=== PATIENT | male | born 1950 | race Caucasian/White ===

== ENCOUNTER 2016-10-02 08:57 | Day surgery (SDC) | payer OTHER ==
[2016-09-30 11:00] VITALS: BMI 29.2
[~2016-10-02 08:57] MED LIST: LACTATED RINGERS 1,000 ML IV SCH; LIDOCAINE 1% 20 ML VIAL (10MG/ML) FOR IV START INTRADERMA PRN
[2016-10-02 09:16] VITALS: RESP 18; TEMP 97.2
[2016-10-02] MEDS ORDERED: MIDAZOLAM 2 MG/2 ML VIAL ONE (09:38)
[2016-10-02] MEDS ORDERED: fentaNYL (PF) 50 MCG/ML 2 ML AMP ONE (09:38)
[2016-10-02] MEDS ORDERED: PROPOFOL 10 MG/ML 20 ML VIAL IV ONE (09:38)
--- NOTE | 2016-10-02 10:00 | P.GSHP ---
History of Present Illness H&P Date: 10/02/16 Chief Complaint: GERD, dysphagia This 65-year-old male referred from Dr. Kayleen marshall. Patient rents today for EGD. He's had issues with GERD and dysphagia. - Constitutional Constitutional: Reports as per HPI Past Medical History Additional Past Medical History / Comment(s): PAST HX HTN-NOW CONTROLLED. ESOPHAGEAL STRICTURE History of Any Multi-Drug Resistant Organisms: None Reported Past Surgical History: Hernia Repair Additional Past Surgical History / Comment(s): HERNIA X 2 Past Anesthesia/Blood Transfusion Reactions: Motion Sickness, Postoperative Nausea & Vomiting (PONV) Smoking Status: Never smoker - Past Family History Father Family Medical History: Cancer Medications and Allergies Home Medications Medication Instructions Recorded Confirmed Type Fish Oil/Dha/Epa [Fish Oil 1,200 1 tab PO DAILY 10/02/16 10/02/16 History mg Fish Oil] Garlic 1 each PO DAILY 10/02/16 10/02/16 History Allergies Allergy/AdvReac Type Severity Reaction Status Date / Time No Known Allergies Allergy Verified 10/02/16 09:09 Surgical - Exam Vital Signs Temp Pulse Resp BP Pulse Ox 97.2 F L 70 18 133/77 96 10/02/16 09:15 10/02/16 09:15 10/02/16 09:15 10/02/16 09:15 10/02/16 09:15 - General well developed, no distress - Eyes PERRL - ENT normal pinna - Neck no masses - Respiratory normal expansion - Cardiovascular Rhythm: regular - Abdomen Abdomen: soft, non tender Assessment and Plan Plan: GERD, dysphagia. We'll perform EGD.
--- NOTE | 2016-10-02 10:09 | P.OP ---
Date of Procedure: 10/02/16 Preoperative Diagnosis: GERD Dysphagia Postoperative Diagnosis: Mild antral gastritis No evidence of hiatal hernia Procedure(s) Performed: EGD Implants: Anesthesia: MAC Surgeon: Mark James Pathology: other (Antrum, esophagus) Condition: stable Disposition: PACU Indications for Procedure: Operative Findings: Description of Procedure: Patient's placed on the endoscopy table in the lateral position. He received IV sedation. The gastroscope some placed oropharynx passed in the esophagus and stomach. The scope was then placed through the pylorus. The first and second portion of the duodenum appeared normal. Scope was then brought back and the antrum and this appeared mildly inflamed. A biopsies performed. Scope was unretroflexed and remainder the stomach appeared normal. The GE junction was at 47 is. There is no significant hiatal hernia. The distal esophagus Appeared Normal. The proximal esophagusAppeared Normal. Scope was withdrawn from patient.
[2016-10-02 10:43] VITALS: BP 130/85; PULSE 62
== END 2016-10-02 10:58 | disposition home or self-care (01) ==
LOC: ORWHC2ENDO 08:57
PROVIDERS: ATTEND Surgery
DX: K21.0 Gastro-esophageal reflux disease with esophagitis (principal); R13.10 Dysphagia, unspecified; K29.50 Unspecified chronic gastritis without bleeding
CPT/HCPCS: 88305; 88342; 43239; J2250; J3010; J2704

== ENCOUNTER → 2016-10-06 | Outpatient (CLI) | payer OTHER ==
--- NOTE | 2016-10-06 08:46 | FL ---
EXAMINATION TYPE: FL UGI w esophagus DATE OF EXAM: 10/06/2016 COMPARISON: NONE HISTORY: Dysphasia TECHNIQUE: A single/double contrast UGI study is performed. FINDINGS: Fur Repair Inspector image of the abdomen shows a curvature of the spine with multilevel degenerative dis c disease and arthropathy of the hips. Vascular calcifications in the pelvis. Bowel gas pattern nonsp ecific. Hypertrophic and degenerative changes spine with 1 chronic appearing wedge deformity in the t horacolumbar junction. The esophagus shows normal motility and emptying into the stomach. No evidence of stricture noted. The stomach shows normal distensibility, peristalsis, and mucosal folds. No evidence of any mass or ulcer disease. Small amount of gastroesophageal reflux with a small sliding hiatal hernia. The duoden al bulb, sweep, and proximal small bowel loops are unremarkable. IMPRESSION: 1. Small sliding hiatal hernia with mild gastroesophageal reflux.
== END | disposition home or self-care (01) ==
LOC: RADFLMAIN 07:40
PROVIDERS: ATTEND Surgery
DX: K21.9 Gastro-esophageal reflux disease without esophagitis (principal); K44.9 Diaphragmatic hernia without obstruction or gangrene
CPT/HCPCS: 74240

== ENCOUNTER 2018-11-23 10:48 | Emergency (ER) | payer MEDICARE, OTHER ==
[2018-11-23 11:11] VITALS: BP 132/85; PULSE 91; RESP 18; TEMP 98.1
--- NOTE | 2018-11-23 12:23 | ED ---
Fall HPI - General Chief Complaint: Fall Stated Complaint: Fall, facial injury Time Seen by Provider: 11/23/18 11:22 Source: patient, RN notes reviewed, old records reviewed Mode of arrival: ambulatory Limitations: no limitations - History of Present Illness Initial Comments: This is a 68-year-old male the ER presents status post fall. Patient is 3 days from a fall off a ladder he did fall onto a bed to complain of some right shoulder pain was seen by orthopedics for shoulder pain. Patient was clearance for shoulder pain but is complaining of also the left thigh pain left headache and sent to ER for evaluation by orthopedics secondary significant swelling of left eye. Patient denies vision changes denies significant headache. Patient states his eye has not been bothering her. Does admit that the significant bruising has been getting progressively worse. No other issues denies drug or alcohol abuse MD Complaint: fall -: days(s) (3) Fall From: from height (distance) (8 ft) When Fall Occurred: # days [employer] (3) Fall Witnessed: no Place Fall Occurred: home Loss of Consciousness: none Prolonged Down Time?: no Symptoms Prior to Fall: none Location: head, face (FI), eyes (Left eye) Severity: moderate Severity scale (1-10): 4 Quality: aching Context: tripped/slipped Associated Symptoms: denies - Related Data Home Medications Medication Instructions Recorded Confirmed No Known Home Medications 11/23/18 11/23/18 Allergies Allergy/AdvReac Type Severity Reaction Status Date / Time No Known Allergies Allergy Verified 11/23/18 11:24 Review of Systems ROS Statement: Those systems with pertinent positive or pertinent negative responses have been documented in the HPI. ROS Other: All systems not noted in ROS Statement are negative. Past Medical History Additional Past Medical History / Comment(s): PAST HX HTN-NOW CONTROLLED. ESOPHAGEAL STRICTURE History of Any Multi-Drug Resistant Organisms: None Reported Past Surgical History: Hernia Repair Additional Past Surgical History / Comment(s): HERNIA X 2 Past Anesthesia/Blood Transfusion Reactions: Motion Sickness, Postoperative Nausea & Vomiting (PONV) Past Psychological History: No Psychological Hx Reported Smoking Status: Never smoker - Past Family History Father Family Medical History: Cancer General Exam Limitations: no limitations General appearance: alert, in no apparent distress Head exam: Present: normocephalic, normal inspection, other (No proptosis noted on exam no tenderness with palpation of L eye). Absent: atraumatic (Patient does have significant ecchymosis and bruising to left eye, edema, mild subcu 100 tidal hemorrhage to the left lateral aspect of eye no hyphema) Eye exam: Present: normal appearance, PERRL, EOMI. Absent: scleral icterus, conjunctival injection, periorbital swelling ENT exam: Present: normal exam, mucous membranes moist Neck exam: Present: normal inspection. Absent: tenderness, meningismus, lymphadenopathy Respiratory exam: Present: normal lung sounds bilaterally. Absent: respiratory distress, wheezes, rales, rhonchi, stridor Cardiovascular Exam: Present: regular rate, normal rhythm, normal heart sounds. Absent: systolic murmur, diastolic murmur, rubs, gallop, clicks GI/Abdominal exam: Present: soft, normal bowel sounds. Absent: distended, tenderness, guarding, rebound, rigid Extremities exam: Present: normal inspection, full ROM, normal capillary refill. Absent: tenderness, pedal edema, joint swelling, calf tenderness Back exam: Present: normal inspection Neurological exam: Present: alert, oriented X3, CN II-XII intact Psychiatric exam: Present: normal affect, normal mood Skin exam: Present: warm, dry, intact, normal color. Absent: rash Course Vital Signs 11/23/18 11:07 Temperature 98.1 F Pulse Rate 91 Respiratory 18 Rate Blood Pressure 132/85 O2 Sat by Pulse 99 Oximetry - Reevaluation(s) Reevaluation #1: 11/23/18 12:23 Record is reviewed Reevaluation #2: 11/23/18 12:43 Patient discussed follow-up with oral surgery, questions answered regarding fracture Medical Decision Making - Medical Decision Making 68 male to ER status post fall 3 days of fall he did hit his left eye has swelling left orbital floor fracture no hematoma, no proptosis, extraocular motion is intact with no vision changes, patient will follow-up with Dr. Silverio - Radiology Data Radiology results: report reviewed (CT brain C-spine and facial bones does show left orbital fracture), image reviewed Disposition Clinical Impression: Fall, Orbital floor (blow-out) closed fracture Disposition: HOME SELF-CARE Condition: Good Instructions (If sedation given, give patient instructions): Facial Fracture (ED) Is patient prescribed a controlled substance at d/c from ED?: No Referrals: Kayleen Griggs DO [Primary Care Provider] - 1-2 days Nii Silverio DDS [STAFF PHYSICIAN] - 1-2 days
--- NOTE | 2018-11-23 12:30 | CT ---
EXAMINATION TYPE: CT brain cspine wo con, CT facial bones wo con DATE OF EXAM: 11/23/2018 COMPARISON: NONE HISTORY: Fall injury 2 days ago, left eye pain and swelling, headache and neck pain CT DLP: 1151.8 (accession [id number]), included in brain/cspine (accession [id number]) mGycm. Automated E xposure Control for Dose Reduction was Utilized. TECHNIQUE: CT scan of the head, facial bones, and cervical spine are all performed without contrast. FINDINGS: There is no acute intracranial hemorrhage or midline shift identified. Diffuse ventricula r and sulcal prominence. The calvarium is intact. The calvarium is intact. Mild calcified plaque supr aclinoid segment bilateral distal internal carotid arteries. Mandible is intact. Temporomandibular joints are maintained bilaterally. The zygomatic arches are int act bilaterally. Nasal bones are intact. Nasal septum is deviated left of midline. There is acute displaced comminuted fracture through the orbital floor. There is preseptal orbital em physema with intraorbital extension from involvement inferiorly near inferior rectus muscle is noted. No proptosis is identified. No post septal hematoma. Moderate soft tissue swelling and hematoma over left zygoma extending inferiorly over the right maxillary sinus. Left inferior rectus muscle shows n o suspicious inferior displacement. Pterygoid plates are intact. Visualized maxilla is intact. Visualized paranasal sinuses are clear. Cervical spine is visualized in its entirety from C1 through upper thoracic levels and demonstrates s atisfactory alignment without evidence of acute fracture or dislocation. Prevertebral soft tissue ap pears within normal limits. The C1-C2 articulation is within normal limits on the coronal images. V ertebral body heights are maintained. Mild to moderate disc space narrowing C5-C6 level with mild to moderate anterior spurring. [id number] disc space narrowing with mild spurring C6-C7 level. L ucent lesion right C6 vertebra favored benign or nonaggressive but indeterminate. Correlate clinicall y. Spinal canal is preserved. Review of axial images show multilevel left-sided uncovertebral facet degenerative changes causing mu ltilevel neural foraminal narrowing. Multilevel disc herniations or disc complex effacing the anterio r thecal sac. Lung apices are clear. Mild calcified plaque bilateral carotid bulb level is noted. IMPRESSION: 1. There is no acute fracture or dislocation evident in the cervical spine. 2. No acute intracranial hemorrhage or midline shift is seen. 3. Acute comminuted blowout type fracture of the left orbital floor without inferior rectus muscle en trapment. Preseptal and postglobe emphysema without post septal hematoma. Moderate soft tissue swelli ng over left lipoma extending inferiorly over left maxillary sinus and cheek.
== END 2018-11-23 13:02 | disposition home or self-care (01) ==
LOC: EC 10:48
DX: S02.32XA Fracture of orbital floor, left side, initial encounter for closed fracture (principal); M79.652 Pain in left thigh; W11.XXXA Fall on and from ladder, initial encounter; Y92.009 Unspecified place in unspecified non-institutional (private) residence as the place of occurrence of the external cause
CPT/HCPCS: 70450; 70486; 72125; 99284

== ENCOUNTER 2019-07-01 11:19 | Emergency (ER) | payer MEDICARE, OTHER ==
[2019-07-01 11:24] VITALS: TEMP 97.3
--- NOTE | 2019-07-01 11:34 | ED ---
General Adult HPI - General Chief complaint: Skin/Abscess/Foreign Body Stated complaint: fb in throat/esophagus Time Seen by Provider: 07/01/19 11:22 Source: patient, family Mode of arrival: ambulatory Limitations: no limitations - History of Present Illness Initial comments: Dictation was produced using [employer] dictation software. please excuse any grammatical, word or spelling errors. This patient was cared for during a federal and state declared state of emergency secondary to Covid 19 Chief Complaint: 68-year-old male with history of food bolus impaction presents with foreign body in throat. History of Present Illness: Patient 68-year-old male he has had a history of esophageal foreign body. Patient states that on he was eating ribs when he felt like the meat became impacted in his lower throat. Patient tried a t home to resolve the issue. He is tried drinking carbonated beverages, gel and oily substances would not resolve. Patient states he's had to have upper endoscopies to relieve the food bolus impaction. States that he had upper endoscopy and there is no apparent reason for why he keeps having these episodes. States that he is able to drink fluids however unable to tolerate solid foods. Denies any shortness of breath. No drooling The ROS documented in this emergency department record has been reviewed and confirmed by me. Those systems with pertinent positive or negative responses have been documented in the HPI. All other systems are other negative and/or noncontributory. PHYSICAL EXAM: General Impression: Alert and oriented x3, not in acute distress HEENT: Normocephalic atraumatic, extra-ocular movements intact, pupils equal and reactive to light bilaterally, mucous membranes moist. Cardiovascular: Heart regular rate and rhythm Chest: Able to complete full sentences, no retractions, no tachypnea Abdomen: abdomen soft, non-tender, non-distended, no organomegaly Musculoskeletal: Pulses present and equal in all extremities, no peripheral edema Motor: no focal deficits noted Neurological: CN II-XII grossly intact, no focal motor or sensory deficits noted Skin: Intact with no visualized rashes Psych: Normal affect and mood ED course: 68-year-old male with clinical presentation consistent with food bolus impaction. Vital signs upon arrival are within acceptable limits. Patient is well-appearing. He is not showing any signs of distress. X-rays of the neck and chest shows no apparent processes. Discussed patient case with Dr. Driscoll was planning to do upper endoscopy possible food bolus retrieval. EKG interpretation: Ventricular rate 77, normal sinus rhythm, MN interval 154, QRS 84, QTC 14. No MN prolongation, no QTC prolongation, no ST or T-wave changes noted. Overall, this EKG is unremarkable Endoscopy team's at bedside performing procedure. Patient tolerated upper endoscopy well. There was an impacted food bolus that was removed. Patient recovered well after anesthesia. Is observed in emergency department for several minutes. Patient be discharged. He is scheduled outpatient follow-up with GI. His gross. Patient will be discharged. - Related Data Home Medications Medication Instructions Recorded Confirmed No Known Home Medications 11/23/18 07/01/19 Allergies Allergy/AdvReac Type Severity Reaction Status Date / Time No Known Allergies Allergy Verified 07/01/19 12:42 Review of Systems ROS Statement: Those systems with pertinent positive or pertinent negative responses have been documented in the HPI. ROS Other: All systems not noted in ROS Statement are negative. Past Medical History Additional Past Medical History / Comment(s): PAST HX HTN-NOW CONTROLLED. ESOPHAGEAL STRICTURE History of Any Multi-Drug Resistant Organisms: None Reported Past Surgical History: Hernia Repair Additional Past Surgical History / Comment(s): HERNIA X 2 Past Anesthesia/Blood Transfusion Reactions: Motion Sickness, Postoperative Nausea & Vomiting (PONV) Past Psychological History: No Psychological Hx Reported Smoking Status: Never smoker Past Alcohol Use History: None Reported Past Drug Use History: None Reported - Past Family History Father Family Medical History: Cancer General Exam Limitations: no limitations Course Vital Signs 07/01/19 07/01/19 11:21 12:45 Temperature 97.3 F L Pulse Rate 82 Respiratory 18 18 Rate Blood Pressure 140/96 121/84 O2 Sat by Pulse 99 93 L Oximetry Medical Decision Making - Lab Data Result diagrams: 07/01/19 12:04 07/01/19 12:04 Lab Results 07/01/19 07/01/19 Range/Units 12:04 12:04 WBC 7.2 (3.8-10.6) k/uL RBC 5.50 (4.30-5.90) m/uL Hgb 16.8 (13.0-17.5) gm/dL Hct 49.2 (39.0-53.0) % MCV 89.5 (80.0-100.0) fL MCH 30.5 (25.0-35.0) pg MCHC 34.1 (31.0-37.0) g/dL RDW 12.5 (11.5-15.5) % Plt Count 315 (150-450) k/uL Neutrophils % 52 % Lymphocytes % 35 % Monocytes % 7 % Eosinophils % 2 % Basophils % 1 % Neutrophils # 3.7 (1.3-7.7) k/uL Lymphocytes # 2.5 (1.0-4.8) k/uL Monocytes # 0.5 (0-1.0) k/uL Eosinophils # 0.2 (0-0.7) k/uL Basophils # 0.1 (0-0.2) k/uL Sodium 138 (137-145) mmol/L Potassium 4.9 (3.5-5.1) mmol/L Chloride 102 (98-107) mmol/L Carbon Dioxide 26 (22-30) mmol/L Anion Gap 10 mmol/L BUN 21 H (9-20) mg/dL Creatinine 0.92 (0.66-1.25) mg/dL Est GFR (CKD-EPI)AfAm >90 (>60 ml/min/1.73 sqM) Est GFR (CKD-EPI)NonAf 87 (>60 ml/min/1.73 sqM) Glucose 97 (74-99) mg/dL Calcium 10.3 H (8.4-10.2) mg/dL Disposition Clinical Impression: Food impaction of esophagus Disposition: HOME SELF-CARE Condition: Good Instructions (If sedation given, give patient instructions): Moderate Sedation (ED), Esophageal Foreign Body (ED) Is patient prescribed a controlled substance at d/c from ED?: No Referrals: Andreia Driscoll MD [STAFF PHYSICIAN] - 1-2 days Time of Disposition: 13:40
[2019-07-01] MEDS ORDERED: SODIUM CHLORIDE 0.9% 1,000 ML IV STA (11:38)
--- NOTE | 2019-07-01 11:51 | XR ---
EXAMINATION TYPE: XR chest 2V DATE OF EXAM: 07/01/2019 HISTORY: esophageal foreign body. REFERENCE: NONE. FINDINGS: The lungs are clear. Pleural space are clear. Heart size is normal. No radiopaque foreign b pepe is seen. IMPRESSION: NORMAL CHEST.
--- NOTE | 2019-07-01 11:52 | XR ---
EXAMINATION TYPE: XR soft tissue neck , 2 VIEWS DATE OF EXAM ORDERED: 07/01/2019 HISTORY: esophageal foreign body. COMPARISON: None. FINDINGS: Soft tissues of the neck are normal. The epiglottis is normal. No radiopaque foreign body is seen. IMPRESSION: NORMAL SOFT TISSUE VIEWS OF THE NECK.
[2019-07-01 12:14] LABS: Basophils # (A) 0.1 k/uL (0-0.2); Basophils % (A) 1 %; Eosinophils # (A) 0.2 k/uL (0-0.7); Eosinophils % (A) 2 %; HCT 49.2 % (39.0-53.0); HGB 16.8 gm/dL (13.0-17.5); Lymphocytes # (A) 2.5 k/uL (1.0-4.8); Lymphocytes % (A) 35 %; MCH 30.5 pg (25.0-35.0); MCHC 34.1 g/dL (31.0-37.0); MCV 89.5 fL (80.0-100.0); Mean Platelet Volume 7.2; Monocytes # (A) 0.5 k/uL (0-1.0); Monocytes % (A) 7 %; Neutrophils # (A) 3.7 k/uL (1.3-7.7); Neutrophils % (A) 52 %; Platelet Count 315 k/uL (150-450); RDW 12.5 % (11.5-15.5); WBC 7.2 k/uL (3.8-10.6)
[2019-07-01 12:24] LABS: African American GFR (CKD) >90 (>60 ml/min/1.73 sqM); Anion Gap 10 mmol/L; Blood Urea Nitrogen 21 mg/dL (9-20); Calcium 10.3 mg/dL (8.4-10.2); Carbon Dioxide 26 mmol/L (22-30); Chloride 102 mmol/L (98-107); Glucose 97 mg/dL (74-99); Non-African American GFR(CKD) 87 (>60 ml/min/1.73 sqM); Potassium 4.9 mmol/L (3.5-5.1); Sodium 138 mmol/L (137-145)
[2019-07-01] MEDS ORDERED: SUCCINYLCHOLINE CHLORIDE 100 MG/5 ML SYR IV ONE (13:13)
[2019-07-01] MEDS ORDERED: PROPOFOL 10 MG/ML 20 ML VIAL IV ONE (13:13)
[2019-07-01] MEDS ORDERED: IV FLUID CONTINUATION 1,000 ML IV ONE (13:14)
[2019-07-01 14:43] VITALS: BP 111/76; PULSE 71; RESP 18
--- NOTE | 2019-07-01 20:28 | CONS ---
CONSULTATION DATE OF SERVICE: 07/01/2019 REQUESTING PHYSICIAN: Dr. Cid REASON FOR CONSULTATION: Acute food impaction. HISTORY OF PRESENT ILLNESS: The patient is a 68-year-old pleasant white male with no significant past medical history, came into the emergency room with acute food dysphagia. He ate chicken for dinner on evening, could not swallow. He tried swallowing. He different things all day Wednesday and today Wednesday, came to the ER complaining of dysphagia. He is able to swallow liquids but not solids. He had a similar episode six years ago needing an upper endoscopy at that time. He states that he had a hiatal hernia repair about 2 years ago and an EGD at that time was unremarkable. PAST MEDICAL HISTORY: Unremarkable. PAST SURGICAL HISTORY: Hernia repair. MEDICATIONS: None. ALLERGIES: No known drug allergies. SOCIAL HISTORY: No smoking, no alcohol use. FAMILY HISTORY: Unremarkable. REVIEW OF SYSTEMS: CARDIOPULMONARY: No chest pain, shortness of breath. GENITOURINARY: No dysuria, hematuria. MUSCULOSKELETAL: Unremarkable. SKIN: Unremarkable. ENDOCRINE: Unremarkable. PSYCHIATRIC: Unremarkable. NEUROLOGY: Unremarkable. ENT/VISION: Unremarkable. CONSTITUTIONAL: No recent weight loss. No fever, chills, night sweats. PHYSICAL EXAMINATION: Blood pressure 130/86, pulse rate 82 per minute and afebrile. HEENT examination unremarkable. Conjunctivae pink. Sclerae anicteric. Conjunctivae pink. Sclerae anicteric. Oral cavity no lesions. NECK: No JVD or lymph node enlargement. CHEST: Clear to auscultation. HEART: Regular rate and rhythm. ABDOMEN: Soft. Bowel sounds are positive. No organomegaly. EXTREMITIES: No pedal edema. NEUROLOGIC: Alert and oriented x3. No focal deficits. LABS: None available. IMPRESSION: 1. Acute food dysphagia in this patient who had an episode about six years ago. Had a piece of meat he swallowed 2 days ago, could not swallow any further. Hence, came to the emergency room. 2. History of hiatal hernia repair. RECOMMENDATIONS: Will proceed with an EGD with foreign body removal. Discussed with him risks, benefits, and complications of procedure and agreeable to it. Thank you for this consultation. MMODL / IJN: [id number] /
--- NOTE | 2019-07-01 20:52 | PCN ---
PROCEDURE NOTE DATE OF SERVICE: 07/01/2019 REQUESTING PHYSICIAN: Dr. Kayleen Griggs. BRIEF HISTORY: The patient is a 68-year-old pleasant white male who came to the emergency room with acute food dysphagia. He was eating a piece of chicken 2 days ago and could not swallow. He was able to manage liquids and saliva. Today he felt progressively getting worse and could not swallow and, hence, he is scheduled for an upper endoscopy for foreign body removal. PROCEDURE PERFORMED: EGD with foreign body removal. PREOPERATIVE DIAGNOSIS: Acute food impaction. IV SEDATION: Per anesthesia. PROCEDURE: After informed consent was obtained from the patient, the procedure was performed in the emergency room. Under general anesthesia upper endoscopy was performed. Scope was inserted into the mouth, esophagus intubated without any difficulty and was gradually advanced into the distal esophagus. There was a large piece of meat that was lodged in the distal esophagus and using a snare, I was able to retrieve the piece of meat out of the mouth. The scope was advanced into the mouth and esophagus reintubated without any difficulty and was gradually advanced into the stomach and duodenum. Bulb and the second part of the duodenum appeared normal. The scope at this time was withdrawn to the stomach, adequately insufflated with air and upon careful examination the mucosa of the antrum, body, cardia and fundus appeared normal. Scope was then withdrawn to the esophagus. The GE junction was located at 41 cm from the incisors. There was a small hiatal hernia noted. There was some tightness noted at the GE junction but no obvious stricture identified. The rest of the esophagus appeared normal. Multiple biopsies were done from the mid and distal esophagus to rule out eosinophilic esophagitis. The patient tolerated the procedure well. IMPRESSION: 1. Tightness at the GE junction probably related from previous hiatal hernia repair with a functional obstruction. 2. Large piece of meat impacted in the distal esophagus, status post removal as described above. RECOMMENDATIONS: Findings of this examination were discussed with the patient as well as his . He will remain on a soft diet. He will follow up with the biopsy results. He will be seen in the office in 1-2 weeks. MMODL / IJN: [id number] /
== END 2019-07-01 14:51 | disposition home or self-care (01) ==
LOC: EC 11:19
DX: T18.128A Food in esophagus causing other injury, initial encounter (principal); I10 Essential (primary) hypertension; Z98.890 Other specified postprocedural states
CPT/HCPCS: 99284; 96360; 96361 ×2; 36415; 93005; 88305; 80048; 85025; 70360; 71046; 43239; 43247; J0330; J2704

== ENCOUNTER → 2019-08-02 | Outpatient (CLI) | payer MEDICARE | END | disposition home or self-care (01) | LOC: LABWHC1 14:35 | PROVIDERS: ATTEND Internal Medicine Gastroenterology | DX: Z11.59 Encounter for screening for other viral diseases (principal) ==

== ENCOUNTER → 2019-08-04 | Day surgery (SDC) | payer MEDICARE ==
[2019-08-03 09:55] VITALS: BMI 27.1
[~2019-08-04] MED LIST changes: +LIDOCAINE 1% (10MG/ML) FOR IV START INTRADERMA ONE; -LIDOCAINE 1% 20 ML VIAL (10MG/ML) FOR IV START INTRADERMA PRN
[2019-08-04 09:55] VITALS: RESP 16; TEMP 97
--- NOTE | 2019-08-04 10:40 | P.PCN ---
Date of Procedure: 08/04/19 Procedure(s) Performed: BRIEF HISTORY: Patient is a 68-year-old, pleasant, white male scheduled for an upper endoscopy as a part of evaluation of intermittent dysphagia to solids. He has episodes of food impaction requiring EGD with foreign bod removal about 5 weeks ago. He scheduled for repeat upper endoscopy with possible dilation today. PROCEDURE PERFORMED: Esophagogastroduodenoscopy with biopsy and dilation. PREOPERATIVE DIAGNOSIS: Intermittent dysphagia to solids and recent episode of food impaction. IV sedation per anesthesia. PROCEDURE: After informed consent was obtained, the patient was brought into the endoscopy unit. IV sedation was administered by Anesthesia under continuous monitoring. Initially the Olympus GIF-140 video endoscope was inserted into the mouth. Esophagus intubated without any difficulty. It was gradually advanced into the stomach and duodenum and carefully examined. The bulb and the second part of the duodenum appeared normal. The scope at this time was withdrawn to the stomach, adequately insufflated with air, and upon careful examination, mucosa of the antrum, body, cardia and the fundus appeared normal. The scope was then withdrawn into the esophagus. The GE junction was located at 41 cm from the incisors. Small hiatal hernia noted. There was a distal esophageal Schatzki's ring identified which was dilated using 15-18 mm balloon sequential fashion for 90 seconds. There was a mucosal tear identified at the end of dilation with small amount of oozing. The rest of the esophagus appeared normal. There were no erosions or ulcerations seen , biopsies were done from the distal esophagus and the patient tolerated the procedure well. IMPRESSION: 1. Distal esophageal Schatzki's ring status post balloon dilation with 15-18 mm TTS balloon as described above. 2. Small hiatal hernia. RECOMMENDATIONS: The findings of this examination were discussed with the patient as well as his family. He will follow with the biopsy results. He was advised to remain on a clear liquid diet for lunch today. He will continue with Prilosec 20 mg daily and follow antireflux measures.. He will be seen in office in 6 weeks.
[2019-08-04 11:00] VITALS: BP 120/75; PULSE 61
== END ==
LOC: ORWHC2ENDO 09:21
PROVIDERS: ATTEND Internal Medicine Gastroenterology
DX: K22.2 Esophageal obstruction (principal); K21.0 Gastro-esophageal reflux disease with esophagitis; K44.9 Diaphragmatic hernia without obstruction or gangrene; Z87.891 Personal history of nicotine dependence; Z79.899 Other long term (current) drug therapy
CPT/HCPCS: 88305; 43239; 43249; C1726

== ENCOUNTER 2020-05-30 09:29 | Observation (INO) | payer MEDICARE ==
--- NOTE | 2020-05-30 10:07 | ED ---
Skin/Abscess/FB HPI - General Chief complaint: Skin/Abscess/Foreign Body Stated complaint: Food in throat Time Seen by Provider: 05/30/20 10:05 Source: patient Mode of arrival: ambulatory Limitations: no limitations - History of Present Illness Initial comments: 69-year-old with history of esophageal foreign body presents to emergency Department with a chief complaint of warm [place] stuck in his throat. Patient reports this occurred on Wednesday after she was eating. States this also occurred about 10 months ago and following that incident, he needed to stretched esophagus. Patient reports not being able to start any solid foods since Wednesday but is able to keep down fluids if he is sipping on them slowly. He denies any chest pain or difficulty breathing at this time. States he does have some discomfort due to the foreign body. - Related Data Home Medications Medication Instructions Recorded Confirmed Prilosec 1 tab PO DAILY 08/03/19 08/04/19 Allergies Allergy/AdvReac Type Severity Reaction Status Date / Time No Known Allergies Allergy Verified 05/30/20 09:35 Review of Systems ROS Statement: Those systems with pertinent positive or pertinent negative responses have been documented in the HPI. ROS Other: All systems not noted in ROS Statement are negative. Past Medical History Additional Past Medical History / Comment(s): PAST HX HTN-NOW CONTROLLED. ESOPHAGEAL STRICTURE History of Any Multi-Drug Resistant Organisms: None Reported Past Surgical History: Hernia Repair Additional Past Surgical History / Comment(s): HERNIA X 2, EGD, esophageal dilation Past Anesthesia/Blood Transfusion Reactions: Motion Sickness, Postoperative Nausea & Vomiting (PONV) Past Psychological History: No Psychological Hx Reported Smoking Status: Former smoker Past Alcohol Use History: Occasional Past Drug Use History: None Reported - Past Family History Father Family Medical History: Cancer General Exam Limitations: no limitations General appearance: alert, in no apparent distress Head exam: Present: atraumatic, normocephalic, normal inspection Eye exam: Present: normal appearance, PERRL, EOMI Pupils: Present: normal accommodation ENT exam: Present: normal exam, normal oropharynx, mucous membranes moist, TM's normal bilaterally, normal external ear exam Neck exam: Present: normal inspection, full ROM. Absent: tenderness Respiratory exam: Present: normal lung sounds bilaterally. Absent: respiratory distress, wheezes, rales, rhonchi, stridor, chest wall tenderness, accessory muscle use Cardiovascular Exam: Present: regular rate, normal rhythm, normal heart sounds GI/Abdominal exam: Present: soft. Absent: distended, tenderness, guarding, rebound Extremities exam: Present: normal inspection, full ROM, normal capillary refill. Absent: tenderness, pedal edema, joint swelling Back exam: Present: normal inspection, full ROM. Absent: tenderness, CVA tenderness (R), CVA tenderness (L) Neurological exam: Present: alert, oriented X3 Psychiatric exam: Present: normal affect, normal mood Skin exam: Present: warm, dry, intact, normal color Course Vital Signs 05/30/20 05/30/20 05/30/20 09:35 10:28 12:25 Temperature 98.7 F Pulse Rate 87 85 81 Respiratory 18 18 16 Rate Blood Pressure 144/98 124/79 125/81 O2 Sat by Pulse 98 95 95 Oximetry Medical Decision Making - Medical Decision Making 69-year-old male with history of esophageal foreign body and esophageal dilation presents to emergency Department with a chief complaint of food stuck in his throat. On physical examination, patient is resting comfortably with no signs of respiratory distress. I attempted conservative management to remove the esophageal foreign body with glucagon, nitro, Reglan, Valium but it was unsuccessful. I contacted Dr. Driscoll who will take the patient to endoscopy for a procedure. I submitted the procedure orders per request from Radha Reyes. Patient signed consent. I contacted administered charge nurse who informed me that the patient needs to be admitted as an observation patient. Case discussed with Dr. Bailey. Disposition Clinical Impression: Esophageal foreign body Disposition: ADMITTED IP TO THIS [facility] Condition: Fair Instructions (If sedation given, give patient instructions): Esophageal Foreign Body (ED) Is patient prescribed a controlled substance at d/c from ED?: No Referrals: Kayleen Griggs DO [Primary Care Provider] - 1-2 days Time of Disposition: 13:00
[2020-05-30] MEDS ORDERED: METOCLOPRAMIDE 5 MG/ML 2 ML VIAL IVP STA (10:12)
[2020-05-30] MEDS ORDERED: SODIUM CHLORIDE 0.9% 1,000 ML IV STA (10:13)
[2020-05-30] MEDS ORDERED: DIAZEPAM 5 MG/ML 2 ML INJ IVP STA (10:13)
[2020-05-30] MEDS ORDERED: NITROGLYCERIN SL TABS 0.4 MG TAB SUBLINGUAL STA (10:13)
[2020-05-30] MEDS ORDERED: GLUCAGON 1 MG/ML VIAL IVP STA (10:13)
[2020-05-30] MEDS ORDERED: NALOXONE 0.4 MG/ML 1 ML VIAL IV PRN (13:16)
[2020-05-30 13:35] VITALS: TEMP 97.8
[2020-05-30] MEDS ORDERED: LACTATED RINGERS 1,000 ML IV ONE ×2 (13:40→14:03)
[2020-05-30] MEDS ORDERED: LIDOCAINE 1% INJ 10MG/ML (20 ML MDV) ONE (13:40)
[2020-05-30] MEDS ORDERED: PROPOFOL 10 MG/ML 20 ML VIAL IV ONE (13:40)
--- NOTE | 2020-05-30 14:04 | P.PCN ---
Date of Procedure: 05/30/20 Procedure(s) Performed: BRIEF HISTORY: Patient is a 69-year-old, pleasant, male came to the ER with acute food impaction. He ate beef 4 days ago and could not swallow any further. He had a similar episode in June 2019 following which he had an upper endoscopy with dilation performed in July 2023 distal esophageal stricture. PROCEDURE PERFORMED: Esophagogastroduodenoscopy with foreign body removal . PREOPERATIVE DIAGNOSIS: Acute food impaction IV sedation per anesthesia. PROCEDURE: After informed consent was obtained, the patient was brought into the endoscopy unit. IV sedation was administered by Anesthesia under continuous monitoring. Initially the Olympus GIF-140 video endoscope was inserted into the mouth. Esophagus intubated without any difficulty. It was gradually advanced into thethe distal esophagus and there was large piece of meat impacted in the distal esophagus. Using a snare the meat was cut into several pieces and gently withdrawn out of the mouth. The esophagus was intubated without any difficulty and was gradually advanced into the stomach and duodenum and carefully examined. The bulb and the second part of the duodenum appeared normal. The scope at this time was withdrawn to the stomach, adequately insufflated with air, and upon careful examination, mucosa of the antrum, body, cardia and the fundus appeared normal. The scope was then withdrawn into the esophagus. The GE junction was located at 39 cm from the incisors. there was an early distal esophageal structure identified. The rest of the esophagus appeared normal. There were no erosions or ulcerations seen and the patient tolerated the procedure well. IMPRESSION: 1. Large piece of meat impacted in the distal esophagus status post removal as described above 2. Early distal esophageal stricture. RECOMMENDATIONS: The findings of this examination were discussed with the patient as well as his family. He will remain on a soft diet today. He'll follow up in office in 2 weeks and will consider repeat EGD with dilation on an elective basis.
[2020-05-30 14:17] VITALS: RESP 18
--- NOTE | 2020-05-30 14:24 | CONS ---
CONSULTATION DATE OF DICTATION: May 30, 2020. REASON FOR CONSULTATION: Acute food impaction. HISTORY OF PRESENT ILLNESS: The patient is a 69-year-old pleasant white male came to the emergency room complaining of food impaction. The patient had eaten corned beef for dinner on Wednesday and he tried to see if he can pass it spontaneously, but was not successful. He was able to swallow some liquids. Today, his symptoms got much worse and hence came to the emergency room and now we are consulted for EGD on an emergency basis. The patient had a similar episode that happened in June of 2019 for which he needed EGD with foreign body removal. He subsequently did have EGD with dilation of the distal esophageal Schatzki's ring in July of 2019. Presently, he denies any abdominal pain. No nausea, no vomiting. MEDICATIONS AT HOME: Prilosec. ALLERGIES: No known drug allergies. PAST SURGICAL HISTORY: EGD with dilation in July of 2019, history of hernia repair. FAMILY HISTORY: Unremarkable. SOCIAL HISTORY: Former smoker. No alcohol use. REVIEW OF SYSTEMS: CARDIOPULMONARY: No chest pain. No shortness of breath. GENITOURINARY: No dysuria or hematuria. MUSCULOSKELETAL: Unremarkable. SKIN: Unremarkable. ENDOCRINE: Unremarkable. PSYCHIATRIC: Unremarkable. NEUROLOGY: Unremarkable. ENT/VISION: Unremarkable. CONSTITUTIONAL: No recent weight loss. No fever, chills, night sweats. PHYSICAL EXAMINATION: Blood pressure is 125/81, pulse 81, temperature 98.7. HEENT EXAMINATION: Unremarkable. Conjunctivae pink. Sclerae anicteric. Oral cavity, no lesions. NECK: No JVD or lymph node enlargement. CHEST: Was clear to auscultation. HEART: Regular rate and rhythm. ABDOMEN: Soft. Bowel sounds are positive. No organomegaly. EXTREMITIES: No pedal edema. NEUROLOGIC: Alert and oriented x3. No focal deficits. LABS: No labs available. IMPRESSION: 1. Acute food impaction. 2. History of esophageal stricture, status post EGD with dilation in July of 2019. RECOMMENDATIONS: We will proceed with EGD with food disimpaction. I discussed with the patient risks, benefits and complications of the procedure and he is agreeable to it. Thank you for this consultation. MMODL / IJN: [id number] /
[2020-05-30 14:57] VITALS: BP 139/87; PULSE 71
== END 2020-05-30 15:09 | disposition home or self-care (01) ==
LOC: EC 09:29 → ORWHC2ENDO 13:17 → 6NMEDSUR 13:23
PROVIDERS: ADMIT Internal Medicine Gastroenterology; ATTEND Internal Medicine Gastroenterology
DX: T18.128A Food in esophagus causing other injury, initial encounter (principal); K22.2 Esophageal obstruction; K21.9 Gastro-esophageal reflux disease without esophagitis; I10 Essential (primary) hypertension; Z79.899 Other long term (current) drug therapy; Z98.890 Other specified postprocedural states; Z87.891 Personal history of nicotine dependence; Z87.19 Personal history of other diseases of the digestive system
CPT/HCPCS: 96374; 96375; 99284; 43247; G0378; J1610; J2765; J3360; J2001; J2704

== ENCOUNTER → 2021-02-11 | Outpatient (CLI) | payer MEDICARE ==
[2021-02-11 12:10] LABS: HCT 43.3 % (39.0-53.0); HGB 14.7 gm/dL (13.0-17.5); MCH 30.8 pg (25.0-35.0); MCHC 33.9 g/dL (31.0-37.0); MCV 90.9 fL (80.0-100.0); Mean Platelet Volume 7.1; Platelet Count 323 k/uL (150-450); RBC 4.76 m/uL (4.30-5.90); RDW 12.8 % (11.5-15.5); WBC 7.9 k/uL (3.8-10.6)
== END | disposition home or self-care (01) ==
LOC: LABPAT 11:24
PROVIDERS: ATTEND Anesthesiology
DX: Z01.812 Encounter for preprocedural laboratory examination (principal); K46.9 Unspecified abdominal hernia without obstruction or gangrene
CPT/HCPCS: 36415; 85027

== ENCOUNTER 2021-02-12 06:55 | Day surgery (SDC) | payer MEDICARE ==
[2021-02-10 12:04] VITALS: BMI 27.8
[~2021-02-12 06:55] MED LIST changes: +ACETAMINOPHEN TAB 500 MG TAB PO PRN; +DEXAMETHASONE SOD PHOSPHATE 4 MG/ML 1 ML VIAL IV ONE; +HEPARIN SODIUM,PORCINE/PF 5,000 UNIT/0.5 ML SYRINGE SQ PRN; -LIDOCAINE 1% (10MG/ML) FOR IV START INTRADERMA ONE; +LIDOCAINE 1% (10MG/ML) FOR IV START INTRADERMA PRN; +ONDANSETRON 4 MG/2 ML VIAL IVP ONE
[2021-02-12] MEDS ORDERED: HYDROmorphone 0.5 MG/0.5 ML SYRINGE IVP PRN (07:00)
[2021-02-12 07:39] LABS: Glucose,Whole Blood 101 mg/dL (75-99)
[2021-02-12] MEDS ORDERED: fentaNYL (PF) 50 MCG/ML 5 ML AMP IVP ONE (08:10)
[2021-02-12] MEDS ORDERED: MIDAZOLAM 2 MG/2 ML VIAL IVP ONE (08:10)
[2021-02-12] MEDS ORDERED: BUPIVACAINE (PF) 0.25% 30 ML VIAL SQ ONE ×3 (08:11→09:02)
[2021-02-12] MEDS ORDERED: ROPIVACAINE 5 MG/ML 30 ML VIAL ONE (08:33)
[2021-02-12] MEDS ORDERED: NEOSTIGMINE 1 MG/ML 10 ML VIAL ONE (08:33)
[2021-02-12] MEDS ORDERED: LIDOCAINE 1% INJ 10MG/ML (20 ML MDV) ONE (08:33)
[2021-02-12] MEDS ORDERED: SUCCINYLCHOLINE CHLORIDE 100 MG/5 ML SYR IV ONE (08:33)
[2021-02-12] MEDS ORDERED: PROPOFOL 10 MG/ML 20 ML VIAL IV ONE (08:33)
[2021-02-12] MEDS ORDERED: SODIUM CHLORIDE 0.9% (PF) 10 ML VIAL ONE (08:33)
[2021-02-12] MEDS ORDERED: GLYCOPYRROLATE 0.2 MG/ML 2 ML VIAL ONE (08:33)
[2021-02-12] MEDS ORDERED: KETAMINE 10 MG/ML 20 ML VIAL ONE (08:33)
[2021-02-12] MEDS ORDERED: ROCURONIUM 10 MG/ML (5 ML VIAL) IV ONE (08:33)
[2021-02-12] MEDS ORDERED: .fentaNYL (PF) 50 MCG/ML 2 ML AMP ONE (08:33)
[2021-02-12 08:35] VITALS: RESP 16
--- NOTE | 2021-02-12 09:13 | P.ANPRN ---
Procedure Note - Anesthesia - Nerve Block Performed Bilateral Rectus Abdominis Time Out Performed: Yes (:) Date of Procedure: 02/12/21 Procedure Start Time: Procedure Stop Time: Location of Patient: PreOp Indication: Acute Post-Operative Pain, Requested by Surgeon (Dr James) Sedation Type: Sedate with meaningful contact maintained Preparation: Sterile Prep Position: Supine Catheter: None Needle Types: Pajunk Needle Gauge: 21 Ultrasound used to visualize needle placement: Yes Ultrasound used to observe medication spread: Yes Injectate: 0.5% Ropivacaine (see comment for volume) (15cc + 10cc PF Normal saline each side) Blood Aspirated: No Pain Paresthesia on Injection Noted: No Resistance on Injection: Normal Image Stored and Saved: Yes Events: Uneventful and Well Tolerated
[2021-02-12] MEDS ORDERED: LACTATED RINGERS 1,000 ML IV ONE (09:29)
--- NOTE | 2021-02-12 09:49 | P.GSHP ---
History of Present Illness H&P Date: 02/12/21 Chief Complaint: Umbilical hernia This is a 70-year-old male who presents today for laparoscopic robotic Umbilical hernia. Patient complaints of a tender mass is umbilicus. Past Medical History Past Medical History: Diabetes Mellitus Additional Past Medical History / Comment(s): PAST HX HTN-NOW CONTROLLED. ESOPHAGEAL STRICTURE History of Any Multi-Drug Resistant Organisms: None Reported Past Surgical History: Hernia Repair Additional Past Surgical History / Comment(s): HERNIA X 2, EGD, esophageal dilation, NOSE SX Past Anesthesia/Blood Transfusion Reactions: Motion Sickness, Postoperative Nausea & Vomiting (PONV) Smoking Status: Former smoker - Past Family History Father Family Medical History: Cancer Medications and Allergies Home Medications Medication Instructions Recorded Confirmed Type Prilosec 1 tab PO DAILY 08/03/19 08/04/19 History Allergies Allergy/AdvReac Type Severity Reaction Status Date / Time No Known Allergies Allergy Verified 02/10/21 11:51 Surgical - Exam Vital Signs Temp Pulse Resp BP Pulse Ox 98.2 F 78 18 114/74 96 02/12/21 07:19 02/12/21 07:19 02/12/21 07:19 02/12/21 07:19 02/12/21 07:19 - General well developed, well nourished, no distress - Eyes PERRL - ENT normal pinna - Neck no masses - Respiratory normal expansion - Cardiovascular Rhythm: regular - Abdomen Abdomen: soft, non tender Hernia: umbilical (2 cm) Results - Labs Abnormal Lab Results - Last 24 Hours (Table) 02/12/21 Range/Units 07:35 POC Glucose (mg/dL) 101 H (75-99) mg/dL Assessment and Plan Assessment: Umbilical hernia. We'll perform laparoscopic robotic-assisted repair.
--- NOTE | 2021-02-12 09:50 | P.OP ---
Date of Procedure: 02/12/21 Preoperative Diagnosis: Umbilical hernia Postoperative Diagnosis: Umbilical hernia Procedure(s) Performed: Laparoscopic robotic system repair of umbilical hernia Transversus abdominis plane block Anesthesia: MENDY Surgeon: Mark James Pathology: other (Incarcerated omentum/hernia sac) Condition: stable Disposition: PACU Description of Procedure: The patient was placed on the operating table in the supine position. He received general anesthesia. His abdomen was prepped and draped usual fashion. A tap block was performed in 4 quadrants using 1% local Xylocaine. Using a 5 mm optical trocar under direct visualization the peritoneal cavity was entered in the left upper quadrant. The abdomen was then insufflated. The laparoscope was placed back into the perineal cavity. Next a 8 mm robotic trocar was placed in the left lower quadrant and a 12 mm robotic trocar was placed in the left lateral position. The original 5 mm trocar was exchanged for a 8 mm robotic trocar. The patient's placed in the left side up position. And the patient was undocked the robot. The umbilical hernia was visualized. Using hook cautery the peritoneum over the umbilical hernia was excised. Incarcerated omentum was dissected free sent to pathology. The fascial opening was repaired using 0V LOC suture. Next a piece of 11 cm round ventral light ST mesh was placed into the. Cavity and secured with 2 OV lock suture. The patient was undocked the robot. The needles were retrieved. The fascia of the 12 mm trocar site was closed with 0 Ethibond suture. Skin was closed interrupted 3-0 Monocryl suture. Dermabond dressings was applied. Patient top procedure well and was sent to recovery room stable condition.
[2021-02-12 09:51] VITALS: TEMP 97.5
[2021-02-12 10:48] VITALS: BP 154/99; PULSE 73
== END 2021-02-12 11:26 | disposition home or self-care (01) ==
LOC: OR 06:55
PROVIDERS: ATTEND Surgery
DX: K42.9 Umbilical hernia without obstruction or gangrene (principal); Z87.891 Personal history of nicotine dependence
CPT/HCPCS: 49653; 64486; 64999; 88305; C1781; J2250; J1100; J2710; J0690; J2405; J2001; J3010 ×2; J2795; J0330; J2704; J1644

== ENCOUNTER → 2024-06-26 | Outpatient (CLI) | payer MEDICARE ==
--- NOTE | 2024-06-26 09:36 | MR ---
EXAMINATION TYPE: MR Prostate wo/w con DATE OF EXAM: 06/26/2024 COMPARISON: None. INDICATION: Benign prostatic hyperplasia ; urinary frequency. PSA: 1.25 ng/ml in April 2024 Recent Biopsy and Date: None Pathology Report (If Applicable): n/a TECHNIQUE: Examination was performed using a 3T MRI without an endorectal coil. Multiparametric imaging was perf ormed with T2 mutliplanar sequences, axial diffusion weighted imaging and dynamic contrast enhanced i maging, utilizing 7.5 mL intravenous Gadobutrol gadolinium contrast. FINDINGS: PROSTATE VOLUME: 4.5 cm SI x 3.5 cm AP x 5.6 cm LR Vol= 46.2 cc PSA DENSITY: 0.03 ng/ml/cc Slightly enlarged prostate consistent with BPH is present. Slightly suboptimal study with some artifa ct posteriorly. Wedge shaped area of slightly diminished signal on ADC mapping in the right periphera l zone laterally. No areas of marked diminished signal in the peripheral zone on ADC imaging. No are as of marked increased signal on diffusion-weighted imaging. There are bilateral transitional zone no dule. No suspicious T2 hypointense areas. No suspicious wall thickening or trabeculation of the urinary bladder. No destructive osseous lesions . IMPRESSION: Slightly enlarged prostate consistent with BPH A focus of clinically significant cancer is not identified. Highest Assessment Category: 2 MRI Stage: T0 N0 M0 based on review of pelvic images. False negative rates for MRI range from 5-20% depending on risk profile. Assessment Categories: 1 ? Very low (clinically significant cancer is highly unlikely to be present) 2 ? Low (clinically significant cancer is unlikely to be present) 3 ? Intermediate (the presence of clinically significant cancer is equivocal) 4 ? High (clinically significant cancer is likely to be present) 5 ? Very high (clinically significant cancer is highly likely to be present) [facility], , 06/26/2024 9:34 AM
== END | disposition home or self-care (01) ==
LOC: RADMRIMAIN 06:04
PROVIDERS: ATTEND Family Medicine
DX: N40.0 Benign prostatic hyperplasia without lower urinary tract symptoms (principal); R35.0 Frequency of micturition
CPT/HCPCS: 72197; A9585